=== PATIENT | male | born 1985 | race Caucasian/White ===

== ENCOUNTER 2023-09-28 22:15 | Inpatient (IN) | payer BC ==
[~2023-09-28] VITALS: Ht 175.3 cm; Wt 77.2 kg
[2023-09-28] MEDS ORDERED: NS 1,000 ML IV ONE ×2 (23:00→23:15)
[2023-09-28] MEDS ORDERED: Acetaminophen 500 MG TAB PO ONE (23:15)
[2023-09-28] MEDS ORDERED: cefTRIAXone 1 G in Water For Injection,Sterile 10 ML IV ONE (23:15)
[2023-09-28 23:24] LABS: BASO % 0.2 % (0.0-2.0); EOS % 0.1 % (0.0-4.0); GRAN # 7.5 K/mm3 (1.4-6.5); GRAN % 87.8 % (42.2-75.2); LYMPH # 0.4 K/mm3 (1.2-3.4); LYMPH % 4.8 % (20.0-51.0); MEAN CELL VOLUME 80 fl (80.0-100.0); MEAN CORPUSCULAR HGB CONC 29 g/dl (33.0-37.0); MONO # 0.6 K/mm3 (0.1-0.6); MONO % 6.7 % (1.7-9.3); PLATELET COUNT 93 K/mm3 (130-400); RED BLOOD COUNT 3.77 M/mm3 (4.20-5.60); REDCELL DISTRIBUTION WIDTH-CV 18.5 % (11.5-14.5)
[2023-09-28 23:35] LABS: HEMATOCRIT 30.2 % (42.0-52.0); HEMOGLOBIN 8.8 g/dl (13.5-18.0); MEAN CORPUSCULAR HEMOGLOBIN 23 pg (27-31)
[2023-09-29] MEDS ORDERED: Iohexol 300 - 100 ML VIAL IV ONE (00:37)
[2023-09-29] MEDS ORDERED: NS 50 ML IV ONE (00:38)
[2023-09-29 00:52] LABS: PH 5.5 (5.0-8.5); URINE APPEARANCE CLEAR (CLEAR/HAZY); URINE BLOOD NEGATIVE (NEGATIVE); URINE COLOR Dark Yellow (YELLOW); URINE GLUCOSE NEGATIVE (NEGATIVE); URINE KETONE NEGATIVE (NEGATIVE); URINE NITRATE NEGATIVE (NEGATIVE); URINE PROTEIN(semi-quant) TRACE (NEGATIVE); URINE UROBILINOGEN 0.2 E.U/dL (0.2-1.0)
[2023-09-29] MEDS ORDERED: TYLENOL 500MG500 MG PO (01:40)
[2023-09-29] MEDS ORDERED: TPN ELECTROLYTE20 ML IV (01:43)
[2023-09-29] MEDS ORDERED: BANATROL PLUS1 SOL PO (01:44)
[2023-09-29] MEDS ORDERED: FIBERCON PO (01:45)
[2023-09-29] MEDS ORDERED: LOVENOX 8080 MG/0.8 SQ (01:46)
[2023-09-29] MEDS ORDERED: LOMOTIL 0.025 M1 TAB PO (01:46)
[2023-09-29] MEDS ORDERED: FERRO-TIME325 MG PO (01:47)
[2023-09-29] MEDS ORDERED: FLONASEALLERGY NS (01:48)
[2023-09-29] MEDS ORDERED: IMODIUM 2MG CAPS2 MG PO (01:48)
[2023-09-29] MEDS ORDERED: ROXICODONE 55 MG/TAB PO (01:49)
[2023-09-29] MEDS ORDERED: ROBAXIN 75750 MG/TAB PO (01:49)
[2023-09-29] MEDS ORDERED: PROTONIX 40MG T40 MG PO (01:49)
[2023-09-29] MEDS ORDERED: XIFAXAN550 MG PO (01:50)
[2023-09-29] MEDS ORDERED: Ondansetron 4 MG/2 ML VIAL IV PRN (02:15)
[2023-09-29] MEDS ORDERED: Cefepime 2 G in Water For Injection,Sterile 20 ML IV SCH (02:15)
[2023-09-29] MEDS ORDERED: oxyCODONE 5 MG TAB PO PRN (02:15)
[2023-09-29] MEDS ORDERED: Acetaminophen 325 MG TAB PO PRN (02:15)
[2023-09-29] MEDS ORDERED: NS & 20 mEq KCl 1,000 ML IV SCH (02:30)
[2023-09-29] MEDS ORDERED: Vancomycin 1.5 GM,Special Dose/Pharmacy Prepared 1.5 GM in NS 250 ML IV ONE (02:30)
[2023-09-29] MEDS ORDERED: Cefepime 1 G in Water For Injection,Sterile 10 ML IV SCH (03:00)
[2023-09-29] MEDS ORDERED: Potassium Bicarbonate/Citrate 20 MEQ Effervescent TAB PO ONE (05:30)
[2023-09-29 08:00] VITALS: BP 109/69; PULSE 109; TEMP 98.6
[2023-09-29] MEDS ORDERED: Loperamide 2 MG CAP PO SCH (09:00)
[2023-09-29] MEDS ORDERED: rifAXIMin 550 MG TAB PO SCH (09:00)
[2023-09-29] MEDS ORDERED: Fluticasone Nasal 50 MCG/Spray 16 GM BOTTLE NS SCH (09:00)
[2023-09-29] MEDS ORDERED: Methocarbamol 750 MG TAB PO SCH (09:00)
[2023-09-29] MEDS ORDERED: Diphenoxylate/Atropine 2.5-0.025 MG TAB PO SCH (09:00)
[2023-09-29] MEDS ORDERED: Ferrous Sulfate 325 MG TAB PO SCH (09:00)
[2023-09-29] MEDS ORDERED: Vancomycin 1.25 GM,Special Dose/Pharmacy Prepared 1.25 GM in NS 250 ML IV SCH (09:30)
[2023-09-29 10:40] LABS: BASO % 0.5 % (0.0-2.0); GRAN # 4.8 K/mm3 (1.4-6.5); GRAN % 82.5 % (42.2-75.2); LYMPH # 0.4 K/mm3 (1.2-3.4); LYMPH % 7.6 % (20.0-51.0); MEAN CELL VOLUME 81 fl (80.0-100.0); MEAN CORPUSCULAR HGB CONC 29 g/dl (33.0-37.0); MONO # 0.5 K/mm3 (0.1-0.6); MONO % 8.9 % (1.7-9.3); PLATELET COUNT 76 K/mm3 (130-400); RED BLOOD COUNT 3.59 M/mm3 (4.20-5.60); REDCELL DISTRIBUTION WIDTH-CV 18.8 % (11.5-14.5)
[2023-09-29 10:41] LABS: HEMATOCRIT 29.2 % (42.0-52.0); HEMOGLOBIN 8.5 g/dl (13.5-18.0); MEAN CORPUSCULAR HEMOGLOBIN 24 pg (27-31)
[2023-09-29] MEDS ORDERED: Dextrose 50% Water 25 GM/50 ML SYRINGE IV PRN (11:00)
[2023-09-29] MEDS ORDERED: Dextrose (Glucose) 15 GM (4 x 3.75 GM) Chewable TABLET PACK PO PRN (11:00)
[2023-09-29] MEDS ORDERED: Glucagon 1 MG VIAL IM PRN (11:00)
[2023-09-29 12:00] VITALS: BP 100/69; PULSE 108; TEMP 99.1
[2023-09-29 13:57] VITALS: BP 98/62; PULSE 105; TEMP 98.4
[2023-09-29 15:23] VITALS: BP 105/63; PULSE 100; TEMP 98.7
[2023-09-29] MEDS ORDERED: [UNRECOGNIZED DRUG - OTHER] IV SCH (16:00)
[2023-09-29] MEDS ORDERED: MAGNESIUM SULFATE IV SCH (16:00)
[2023-09-29] MEDS ORDERED: CALCIUM GLUCONATE 1000 MG IV SCH (16:00)
[2023-09-29] MEDS ORDERED: Insulin Lispro (HumaLOG) SQ SCH (18:00)
[2023-09-29 19:20] VITALS: BP 106/65; PULSE 101; TEMP 98.1
[2023-09-29 23:32] VITALS: BP 109/66; PULSE 98; TEMP 99
[2023-09-30 03:27] VITALS: BP 104/63; PULSE 98; TEMP 99.1
[2023-09-30 06:47] LABS: BASO % 0.8 % (0.0-2.0); EOS # 0.1 K/mm3 (0.0-0.7); EOS % 1.2 % (0.0-4.0); GRAN # 3.5 K/mm3 (1.4-6.5); GRAN % 71.7 % (42.2-75.2); HEMATOCRIT 27.8 % (42.0-52.0); HEMOGLOBIN 8.2 g/dl (13.5-18.0); LYMPH # 0.8 K/mm3 (1.2-3.4); MEAN CELL VOLUME 81 fl (80.0-100.0); MEAN CORPUSCULAR HEMOGLOBIN 24 pg (27-31); MEAN CORPUSCULAR HGB CONC 30 g/dl (33.0-37.0); MONO # 0.5 K/mm3 (0.1-0.6); MONO % 9.9 % (1.7-9.3); PLATELET COUNT 70 K/mm3 (130-400); RED BLOOD COUNT 3.42 M/mm3 (4.20-5.60); REDCELL DISTRIBUTION WIDTH-CV 18.7 % (11.5-14.5)
[2023-09-30 07:09] LABS: ALBUMIN 2.7 g/dL (3.5-5.0); CREATININE, serum 0.66 mg/dL (0.72-1.25); POTASSIUM 3.5 mEq/L (3.5-4.5); TOTAL PROTEIN 6.1 g/dl (6.2-8.1)
[2023-09-30 07:30] LABS: MAGNESIUM 1.9 mg/dL (1.6-2.6); PHOSPHOROUS 2.3 mg/dL (2.3-4.7)
[2023-09-30 08:00] VITALS: BP 98/61; PULSE 108; TEMP 98.8
[2023-09-30] MEDS ORDERED: Potassium Chloride 100 ML IV SCH (10:15)
[2023-09-30] MEDS ORDERED: LR 1,000 ML IV SCH (11:45)
[2023-09-30 12:03] VITALS: BP 106/67; PULSE 92; TEMP 98.5
[2023-09-30] MEDS ORDERED: D5 1/2 NS 1,000 ML IV SCH ×2 (13:15→22:00)
[2023-09-30 15:58] VITALS: BP 98/61; PULSE 89; TEMP 98.8
[2023-09-30 19:45] VITALS: BP 109/68; PULSE 93; TEMP 98.6
[2023-09-30] MEDS ORDERED: Insulin Lispro (HumaLOG) SQ SCH (21:00)
[2023-10-01] VITALS (7 sets, daily range): BP systolic 92–118; BP diastolic 57–69; PULSE 83–94; TEMP 98.2–98.9
[2023-10-01 06:31] LABS: BASO % 0.8 % (0.0-2.0); EOS # 0.2 K/mm3 (0.0-0.7); EOS % 4.2 % (0.0-4.0); GRAN # 1.7 K/mm3 (1.4-6.5); GRAN % 47.7 % (42.2-75.2); LYMPH # 1.1 K/mm3 (1.2-3.4); LYMPH % 31.4 % (20.0-51.0); MEAN CELL VOLUME 82 fl (80.0-100.0); MEAN CORPUSCULAR HGB CONC 29 g/dl (33.0-37.0); MONO # 0.5 K/mm3 (0.1-0.6); MONO % 15.3 % (1.7-9.3); PLATELET COUNT 72 K/mm3 (130-400); RED BLOOD COUNT 3.42 M/mm3 (4.20-5.60); REDCELL DISTRIBUTION WIDTH-CV 18.8 % (11.5-14.5)
[2023-10-01 06:49] LABS: ALBUMIN 2.7 g/dL (3.5-5.0); BILIRUBIN,TOTAL 1.7 mg/dL (0.2-1.2); CALCIUM 8.5 mg/dL (8.4-10.2); CREATININE, serum 0.68 mg/dL (0.72-1.25); MAGNESIUM 1.6 mg/dL (1.6-2.6); PHOSPHOROUS 2.9 mg/dL (2.3-4.7); POTASSIUM 3.7 mEq/L (3.5-4.5); TOTAL PROTEIN 6.3 g/dl (6.2-8.1)
[2023-10-01 07:09] LABS: HEMOGLOBIN 8.1 g/dl (13.5-18.0); MEAN CORPUSCULAR HEMOGLOBIN 24 pg (27-31)
[2023-10-01] MEDS ORDERED: Vancomycin 1.5 GM,Special Dose/Pharmacy Prepared 1.5 GM in NS 250 ML IV SCH (10:30)
[2023-10-02] VITALS (15 sets, daily range): BP systolic 99–123; BP diastolic 55–77; PULSE 79–100; TEMP 98.1–98.8
[2023-10-02 06:09] LABS: BASO # 0.1 K/mm3 (0.0-0.2); BASO % 1.4 % (0.0-2.0); EOS # 0.2 K/mm3 (0.0-0.7); EOS % 5.8 % (0.0-4.0); GRAN # 1.4 K/mm3 (1.4-6.5); GRAN % 39.7 % (42.2-75.2); LYMPH # 1.4 K/mm3 (1.2-3.4); LYMPH % 40.6 % (20.0-51.0); MEAN CELL VOLUME 81 fl (80.0-100.0); MEAN CORPUSCULAR HGB CONC 29 g/dl (33.0-37.0); MONO # 0.4 K/mm3 (0.1-0.6); MONO % 12.2 % (1.7-9.3); PLATELET COUNT 75 K/mm3 (130-400); REDCELL DISTRIBUTION WIDTH-CV 18.8 % (11.5-14.5)
[2023-10-02 06:12] LABS: HEMATOCRIT 27.4 % (42.0-52.0); MEAN CORPUSCULAR HEMOGLOBIN 24 pg (27-31)
[2023-10-02 06:25] LABS: MAGNESIUM 1.6 mg/dL (1.6-2.6); PHOSPHOROUS 3.6 mg/dL (2.3-4.7)
[2023-10-02 06:43] LABS: POTASSIUM 3.6 mEq/L (3.5-4.5)
[2023-10-02 07:04] LABS: ALBUMIN 2.7 g/dL (3.5-5.0); BILIRUBIN,TOTAL 1.5 mg/dL (0.2-1.2); CALCIUM 8.1 mg/dL (8.4-10.2); CREATININE, serum 0.65 mg/dL (0.72-1.25)
[2023-10-02] MEDS ORDERED: LR 1,000 ML IV SCH (09:00)
[2023-10-02] MEDS ORDERED: Methocarbamol 750 MG TAB PO PRN (09:15)
[2023-10-02] MEDS ORDERED: Magnesium Sulfate 4 GM/50 ML IV SOLN IV ONE (09:30)
[2023-10-03] VITALS (11 sets, daily range): BP systolic 99–107; BP diastolic 61–64; PULSE 79–93; TEMP 97.8–98.6
[2023-10-03 07:11] LABS: CALCIUM 8.8 mg/dL (8.4-10.2); CREATININE, serum 0.75 mg/dL (0.72-1.25); MAGNESIUM 1.8 mg/dL (1.6-2.6); PHOSPHOROUS 3.4 mg/dL (2.3-4.7); POTASSIUM 3.6 mEq/L (3.5-4.5)
[2023-10-03] MEDS ORDERED: CUBICIN 500MG500 MG IV (13:16)
[2023-10-03] MEDS ORDERED: DAPTOMYCIN IV SCH (16:00)
[2023-10-03] MEDS ORDERED: NS IV SCH (16:00)
[2023-10-04] VITALS (7 sets, daily range): BP systolic 95–100; BP diastolic 61–62; PULSE 85–94; TEMP 98–98.3
[2023-10-04 06:49] LABS: MEAN CELL VOLUME 79 fl (80.0-100.0); MEAN CORPUSCULAR HGB CONC 30 g/dl (33.0-37.0); PLATELET COUNT 109 K/mm3 (130-400); RED BLOOD COUNT 3.84 M/mm3 (4.20-5.60); REDCELL DISTRIBUTION WIDTH-CV 18.9 % (11.5-14.5)
[2023-10-04 06:51] LABS: HEMATOCRIT 30.3 % (42.0-52.0); MEAN CORPUSCULAR HEMOGLOBIN 23 pg (27-31)
[2023-10-04 07:17] LABS: ALBUMIN 3.1 g/dL (3.5-5.0); BILIRUBIN,TOTAL 1.5 mg/dL (0.2-1.2); CALCIUM 9.2 mg/dL (8.4-10.2); CREATININE, serum 0.68 mg/dL (0.72-1.25); MAGNESIUM 1.7 mg/dL (1.6-2.6); PHOSPHOROUS 3.4 mg/dL (2.3-4.7); POTASSIUM 3.6 mEq/L (3.5-4.5); TOTAL PROTEIN 6.9 g/dl (6.2-8.1)
[2023-10-04 08:25] LABS: ANISOCYTOSIS 1+; BAND 9 % (0-10); EOSINOPHIL 5 % (0-4); LYMPHOCYTE 23 % (20.0-51.0); NEUTROPHILS 59 % (42.0-75.2); PLATELET ESTIMATE DECREASED (NORMAL)
== END 2023-10-04 14:34 | disposition home or self-care (01) | DRG 872 ==
LOC: COL.ER 22:15 → MEDICAL 09-29 02:06 → ICU 09-29 02:06 → MEDICAL 09-29 02:26 → COL.ER 09-29 02:26 → MEDICAL 09-29 04:09
PROVIDERS: Personal Emergency Response Attendant; Physician Assistant; ADMIT Internal Medicine
PROC: 02HV33Z Insertion of Infusion Device into Superior Vena Cava, Percutaneous Approach (ICD-10-PCS; principal; 2023-09-29)
DX: A41.9 Sepsis, unspecified organism (principal); C18.9 Malignant neoplasm of colon, unspecified; E87.6 Hypokalemia; E83.42 Hypomagnesemia; D69.6 Thrombocytopenia, unspecified; D64.9 Anemia, unspecified
CPT/HCPCS: A4217; C1751; J0612; J0692; J0696; J0878; J1650; J2405; J2704; J3370; J3411; J3475; J3480; J7030; J7050; J7120; Q3014; Q9967

== ENCOUNTER 2024-03-20 14:05 | Emergency (ER) | payer BC ==
[~2024-03-20] VITALS: Ht 175.3 cm; Wt 83.6 kg
[~2024-03-20 14:05] MED LIST: BANATROL PLUS1 SOL PO; CUBICIN 500MG500 MG IV; FERRO-TIME325 MG PO; FIBERCON PO; FLONASEALLERGY NS; IMODIUM 2MG CAPS2 MG PO; LOMOTIL 0.025 M1 TAB PO; LOVENOX 8080 MG/0.8 SQ; PROTONIX 40MG T40 MG PO; ROBAXIN 75750 MG/TAB PO; ROXICODONE 55 MG/TAB PO; TPN ELECTROLYTE20 ML IV; TYLENOL 500MG500 MG PO; XIFAXAN550 MG PO
[2024-03-20 14:20] VITALS: TEMP 98
[2024-03-20] MEDS ORDERED: cefTRIAXone 1 G,Lidocaine PF 1% 2.1 ML IM ONE (15:45)
[2024-03-20] MEDS ORDERED: CEPHALEXIN500 M1 PO (15:49)
[2024-03-20 16:17] VITALS: BP 115/80; PULSE 89
== END 2024-03-20 16:17 | disposition home or self-care (01) ==
LOC: COL.ER 14:05
DX: T80.211A Bloodstream infection due to central venous catheter, initial encounter (principal)
CPT/HCPCS: J0696